=== PATIENT | male | born 1960 | race Caucasian/White ===

== ENCOUNTER 2016-12-19 10:25 | Outpatient (CLI) | payer OTHER ==
[2016-12-19 15:53] VITALS: BP 98/80
--- NOTE | 2016-12-20 13:08 | XRAY Report ---
There was no imaging performed for this exam. Procedure notes and results available in the EMR. RAISA
--- NOTE | 2016-12-22 04:23 | CARDIAC PROCEDURE NOTE ---
DATE OF SERVICE: 12/19/2016 00:00:00 PRIMARY CARE PROVIDER: FRANSISCO Oneal. PROCEDURE: Treadmill exercise test. PROCEDURE SYMPTOMS: Dyspnea on exertion; atypical chest pain. CARDIAC RISK FACTORS INCLUDE: Family history; former smoker. PREVIOUS CARDIAC PROCEDURES: None. CLINICAL HISTORY: A 56-year-old male without known coronary artery disease. INITIAL RESTING VITAL SIGNS: Blood pressure 98/80, heart rate 69, height 69 inches, weight 184 pound s, BMI 27.2. PROCEDURE AND FINDINGS: Patient identity and date verified, consent signed. The patient perfo rmed treadmill exercise using a Evan protocol, completing 12 minutes 21 seconds, and completing an e stimated workload of 12.9 metabolic equivalents. Maximal blood pressure was 145/90 with a heart rate of 155 beats per minute or 94% of maximum predicted heart rate for age. The blood pressure response to exercise was within normal limits. The patient stopped because he was getting short of air. At peak exercise, the patient rated the max imal Max scale for rating perceived exertion as 18/20. The resting ECG demonstrated normal sinus rh ythm with no abnormalities. Maximum ST segment depression with stress was less than 0.5 mm and upslo ping. There was no ectopy. FINAL IMPRESSIONS 1. Negative stress electrocardiogram for ischemia by electrocardiographic criteria. 2. Negative stress test clinically for angina. 3. No ectopy. 4. [employer] functional class 1. JOB #: [id number] EXT JOB #:[id number]
== END 2016-12-19 10:26 | disposition home or self-care (01) ==
LOC: DI 10:25
PROVIDERS: ATTEND Family Medicine
DX: R07.89 Other chest pain (principal); R06.00 Dyspnea, unspecified
CPT/HCPCS: 93017

== ENCOUNTER 2018-02-12 10:48 | Outpatient (CLI) | payer OTHER ==
[2018-02-12] MEDS ORDERED: IOPAMIDOL-300 100 ML VIAL ONE (10:57)
--- NOTE | 2018-02-12 11:59 | CT Report ---
Reason: SEVERAL CYST IN RIGHT INNER EAR CANAL Procedure Date: 02/12/2018 Accession Number: [id number] / [id number] Procedure: CT - Head W/ CPT Code: FULL RESULT: EXAM: CT HEAD EXAM DATE: 02/12/2018 11:14 AM. CLINICAL HISTORY: SEVERAL CYST IN RIGHT INNER EAR CANAL. COMPARISON: None. TECHNIQUE: Multiaxial CT images were obtained from the foramen magnum to the vertex. Reformats: Coronal. IV contrast: 80 cc Isovue-300. In accordance with CT protocol optimization, one or more of the following dose reduction techniques were utilized for this exam: automated exposure control, adjustment of mA and/or KV based on patient size, or use of iterative reconstructive technique. FINDINGS: Parenchyma: No intraparenchymal hemorrhage, although evaluation for hemorrhage is suboptimal in the presence of intravenous contrast. No evidence of mass, midline shift, or CT findings of infarction. Robles-white differentiation is distinct. Right posterior fossa calcification is noted. No abnormal enhancement is seen. Extraaxial Spaces: Normal for age. No subdural or epidural collections identified. Ventricles: Normal in size and position. Sinuses and Orbits: Imaged paranasal sinuses, orbits, and mastoids show no significant abnormality. There is a small nonenhancing soft tissue focus about the right middle ear, of uncertain significance. Bones: No evidence of fracture or calvarial defect. No discrete outer maladies are seen about the inner auditory canals, although the exam is not optimized for their evaluation. IMPRESSION: Small nonenhancing soft tissue focus about the right middle ear is nonspecific. RADIA
[2018-02-12] MEDS ORDERED: IOPAMIDOL-300 100 ML VIAL IVP ONE (12:58)
== END 2018-02-12 10:49 | disposition home or self-care (01) ==
LOC: DI 10:48
PROVIDERS: ATTEND Nurse Practitioner Acute Care
DX: H83.8X1 Other specified diseases of right inner ear (principal)
CPT/HCPCS: 70460; Q9967

== ENCOUNTER 2020-05-13 13:33 | Outpatient (CLI) | payer OTHER ==
[2020-05-13] MEDS ORDERED: GADOBUTROL 10 MMOL/10 ML VIAL ONE (14:34)
[2020-05-13] MEDS ORDERED: GADOBUTROL 10 MMOL/10 ML VIAL IVP ONE (15:15)
--- NOTE | 2020-05-15 08:48 | MRI Report ---
PROCEDURE: Knee LT W/WO INDICATIONS: PAIN AND LUMP, LT KNEE CONTRAST: IV CONTRAST: Gadavist ml: 8 TECHNIQUE: Noncontrast sagittal PD fast spin echo and T2 fast spin echo with fat saturation, sagittal 3-D spoile d GE with fat saturation; coronal T1 spin echo and PD fast spin echo with fat saturation, and axial T 1 spin echo and PD fast spin echo with fat saturation through the knee. Post-contrast axial, coronal , and sagittal T1 spin echo with fat saturation through the knee. COMPARISON: None. FINDINGS: Image quality: Excellent. Menisci: Truncation of the free edge of the posterior horn medial meniscus is present, indicating rad ial tearing. There is linear oblique high signal intensity traversing the posterior horn medial menis cus, demonstrating inferior articular surface extension, indicating superimposed oblique tearing. The re is partial detachment of the posterior horn lateral meniscus which appears intact. Cruciate ligaments: The anterior and posterior cruciate ligaments appear intact. Medial structures: The medial collateral ligament appears intact but demonstrates mild surrounding T 2 signal elevation.. Visualized portions of the pes anserinus tendons appear normal. No abnormal bur tiffani fluid. Lateral structures: The lateral collateral ligament, long and short heads of the biceps femoris tend on appear intact. The popliteus tendon appears normal. Iliotibial band appears normal. Anterior structures: The quadriceps and patellar tendons appear intact. There is mild T2 signal elev ation within the patellar tendon at the patellar insertion site. Patellar alignment is normal. No fe moral trochlear dysplasia or ventral trochlear prominence. Moderate edema in the infrapatellar fat pa d. Bones and cartilage: No suspicious osseous enhancement. No bone marrow contusions or fractures. Mil d tricompartmental periarticular osteophyte formation is present. There is moderate to severe diffuse articular cartilage loss overlying the weightbearing aspects of the medial femoral condyle and media l tibial plateau. Mild articular cartilage loss overlies the weightbearing aspects of the lateral fem oral condyle and lateral tibial plateau. Articular cartilage fibrillation overlies the medial and lat eral patellar facets. Joint space: There is a moderate knee joint effusion and a moderate De La Vega?s cyst. There is diffuse synovial enhancement following contrast administration. Normal appearing synovial plicae are incident ally noted. No suspicious soft tissue enhancement. At the posterior/medial aspect of the distal femur, there is a well-circumscribed bilobed nonenhancin g high T1/T2 signal intensity focus with multiple internal septations, measuring roughly 80 mm cranio caudal by 25 mm transverse by 30 mm anteroposterior, at the posterolateral aspect of the De La Vega's cyst , and superficial to the medial head of the gastrocnemius.. IMPRESSION: 1. The superficial soft tissue focus described above at the posteromedial aspect of the distal femur most likely represents a proteinaceous fluid containing cyst (possibly a loculated ganglion cyst digna ing from the De La Vega's cyst) versus a spontaneous hematoma. Continued clinical follow-up is recommended , with repeat pre and postcontrast MRI imaging in 3 months to ensure resolution, and to exclude under lying neoplasm. 2. 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 3. MCL strain. 4. Medial meniscal tearing. Lateral meniscal detachment. 5. Synovitis. 6. Patellar tendinitis. 7. Knee joint effusion and De La Vega's cyst. Reviewed by: Yara Belcher MD on 05/15/2020 8:47 AM PST Approved by: Yara Belcher MD on 05/15/2020 8:47 AM PST Station ID: [id number]
== END 2020-05-13 13:34 | disposition home or self-care (01) ==
LOC: DI 13:33
PROVIDERS: ATTEND Internal Medicine
DX: M17.12 Unilateral primary osteoarthritis, left knee (principal); S83.412A Sprain of medial collateral ligament of left knee, initial encounter; S83.242A Other tear of medial meniscus, current injury, left knee, initial encounter; M71.22 Synovial cyst of popliteal space [Baker], left knee; M76.52 Patellar tendinitis, left knee
CPT/HCPCS: 73723; A9585

== ENCOUNTER 2020-08-11 10:32 | Outpatient (CLI) | payer OTHER ==
[2020-08-11] MEDS ORDERED: GADOBUTROL 10 MMOL/10 ML VIAL ONE (10:54)
[2020-08-11] MEDS ORDERED: GADOBUTROL 10 MMOL/10 ML VIAL IVP ONE (11:10)
--- NOTE | 2020-08-11 12:59 | MRI Report ---
PROCEDURE: Knee LT W/WO INDICATIONS: EFFUSION LEFT KNEE CONTRAST: IV CONTRAST: Gadavist ml: 8.5 TECHNIQUE: Noncontrast sagittal PD fast spin echo and T2 fast spin echo with fat saturation, sagittal 3-D spoile d GE with fat saturation; coronal T1 spin echo and PD fast spin echo with fat saturation, and axial T 1 spin echo and PD fast spin echo with fat saturation through the knee. Post-contrast axial, coronal , and sagittal T1 spin echo with fat saturation through the knee. COMPARISON: Left knee MRI 05/13/2020 FINDINGS: Image quality: Excellent. Menisci: There is complex tearing of the medial meniscus with a horizontal oblique component extendin g to the inner third of the tibial articular surface and a superimposed shallow radial component. The lateral meniscus is intact. Cruciate ligaments: The anterior and posterior cruciate ligaments appear intact. Medial structures: The medial collateral ligament appears intact. The semimembranosus tendon insert ions appear intact. Visualized portions of the pes anserinus tendons appear normal. Lateral structures: The lateral collateral ligament, long and short heads of the biceps femoris tend on appear intact. The popliteus tendon appears intact. Iliotibial band appears normal. Anterior structures: The quadriceps and patellar tendons appear intact. Patellar alignment is ester l. There is a congenitally shallow trochlear groove with a prominent lateral patellar facet without p atellar subluxation. The tibial tubercle trochlear groove distance is within normal limits. No signif icant edema is seen in Hoffa's fat pad. Bones and cartilage: No bone marrow contusion or acute fracture. Full-thickness cartilage loss is s een in the weightbearing portion of the medial femorotibial compartment. High-grade and likely full-t hickness cartilage loss is seen in the posterior weightbearing portion of the lateral femorotibial co mpartment. In the anterior compartment, there is mild partial thickness cartilage irregularity in the lateral patellar facet. Joint space and soft tissues: There is a small joint effusion that has decreased in size when compar ed to the prior MRI. A small medial popliteal cyst is present. The previously seen T1 hyperintense co llection posterior to the knee has resolved. No suspicious soft tissue mass is identified. IMPRESSION: 1. The previously seen T1-hyperintense collection along the superficial margin of the medial head of gastrocnemius muscle has resolved, likely representing a benign hematoma on the prior study. No susp icious enhancing soft tissue mass. 2. Unchanged complex tearing of the medial meniscus with horizontal oblique and shallow radial compo nents. 3. 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 Grad e III to IV chondromalacia in the lateral compartment and grade II chondromalacia in the anterior com partment. 4. 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 The tibial tubercle-trochlear groove distance is within normal limits. 5. Small joint effusion. Small medial popliteal cyst, which has mildly decreased in size when compar ed to the prior exam. Reviewed by: Abrahan Boogie MD on 08/11/2020 12:58 PM PST Approved by: Abrahan Boogie MD on 08/11/2020 12:58 PM PST Station ID: [id number]
== END 2020-08-11 10:33 | disposition home or self-care (01) ==
LOC: DI 10:32
PROVIDERS: ATTEND Orthopaedic Surgery
DX: M25.462 Effusion, left knee (principal); S83.242A Other tear of medial meniscus, current injury, left knee, initial encounter; M94.262 Chondromalacia, left knee; M71.22 Synovial cyst of popliteal space [Baker], left knee
CPT/HCPCS: 73723; A9585

== ENCOUNTER 2021-01-06 15:49 | Emergency (ER) | payer OTHER ==
[2021-01-06] MEDS ORDERED: BUFFERED LIDOCAINE 10 ML SYRINGE SUBQ STA (16:18)
[2021-01-06] MEDS ORDERED: TETANUS/DIPHTHERIA/PERTUSSIS 0.5 ML SYRINGE IM ONE (16:18)
[2021-01-06] MEDS ORDERED: BACITRACIN ZINC OINT 1 PACKET TOP STA (16:19)
--- NOTE | 2021-01-06 16:21 | ED Physician Documentation ---
History of Present Illness - Stated complaint Stated Complaint: LT KNEE INJURY - Chief complaint Chief Complaint: Laceration - Additonal information Additional information: 60-year-old male presents emergency department for an evaluation of a laceration just above his left patella sustained when using a chain saw at home today his knee was flexed when the injury occurred. Uncertain of last tetanus. Patient is ambulatory. Denies any other injuries. Review of Systems Constitutional: reports: Reviewed and negative Nose: reports: Reviewed and negative Throat: reports: Reviewed and negative Cardiac: reports: Reviewed and negative Skin: reports: Laceration (s) PD PAST MEDICAL HISTORY - Past Medical History : Benign prostate hypertrophy - Past Surgical History Ortho: Carpal Tunnel surgery HEENT: Other - Allergies Allergies/Adverse Reactions: Allergies Allergy/AdvReac Type Severity Reaction Status Date / Time No Known Drug Allergies Allergy Verified 01/06/21 16:03 PD ED PE EXPANDED - Extremities Extremities: Left knee (5 cm laceration approximately 4 cm Above the left patella. Patient has full flexion extension of the knee against resistance and a normal gait. Visual exam does not reveal any obvious tendon or muscle injury though the laceration does extend to just below the subcutaneous tissue.), Cold foot Results - Vitals Vitals: Vital Signs - 24 hr 01/06/21 16:01 Temperature 369.9 C H Heart Rate 97 Respiratory 20 Rate Blood Pressure 155/111 H O2 Saturation 97 Oxygen O2 Source Room air - Rads (name of study) left knee Radiology: EMP read indepedently (No fracture) Procedures - Laceration (location) left knee Length in cm: 5 Wound type: Irregular, Flap, Into subcut fat, Contaminated Neurovascular status: Sensory intact, Motor intact Tendon involvement: Tendon intact Anesthesia: LET Wound preparation: Chlorhexadine, Irrigated copiously NS, Debrided moderately, Wound explored, To the base, debridement of wound edges (traumatic laceration/avulsion), Limited undermining Skin layer closure: Val (6) Other: Patient tolerated well, No complications, Tetanus booster given PD MEDICAL DECISION MAKING - ED course Complexity details: reviewed results, d/w family ED course: 60-year-old male presents emergency department for evaluation of a laceration just above his left knee sustained when using a chainsaw. With thorough evaluation there does not appear to be any tendon injury. His gait is normal and unassisted. No evidence of bony involvement on x-ray. Tetanus was updated today. Wound was thoroughly irrigated. Wound did require moderate debridement to approximate the skin edges. 6 val placed. Emergent return precautions discussed. Departure - Departure Disposition: 01 Home, Self Care Clinical Impression: Laceration of left knee Qualifiers: Encounter type: initial encounter Qualified Code(s): S81.012A - Laceration without foreign body, left knee, initial encounter Condition: Stable Record reviewed to determine appropriate education?: Yes Instructions: ED Laceration All Comments: Your val should be removed in 7 to 10 days. In 24 hours you may remove the dressing wash gently with warm soap and water, apply any antibiotic ointment and a simple bandage. Your tetanus is up-to-date. Please attempt to keep your wound clean and dry. Do not submerge it in dirty dishwater or bath water. Reduce flexion extension of the knee to allow the wound to heal more quickly. Return to the emergency department if you have any concerns of infection such as redness, fevers milky drainage increased pain.
--- NOTE | 2021-01-06 17:05 | XRAY Report ---
PROCEDURE: Knee 2 View LT INDICATIONS: cut with chainsaw TECHNIQUE: 2 views of the left knee(s) were acquired. COMPARISON: Correlation is made with prior knee MRI examinations, 08/11/2020, 05/13/2020 FINDINGS: Bones: No fractures or dislocations. No suspicious bony lesions. There is moderate medial femorotibial joint space narrowing, with associated degenerative change with subchondral sclerosis and osteophyte formation. Soft tissues: Soft tissue injury is seen involving the distal thigh. No radiopaque foreign bodies ar e seen. Atherosclerotic calcification is seen. IMPRESSION: Soft tissue injury seen involving the distal thigh, without an underlying valentín bony abn ormality seen. Reviewed by: Dov Willett MD on 01/06/2021 4:04 PM [facility]RA Approved by: Dov Willett MD on 01/06/2021 4:04 PM LIBRA Station ID: [id number]
[2021-01-06 17:12] VITALS: BP 135/97
== END 2021-01-06 17:12 | disposition home or self-care (01) ==
LOC: ED 15:49
DX: S81.012A Laceration without foreign body, left knee, initial encounter (principal); W29.3XXA Contact with powered garden and outdoor hand tools and machinery, initial encounter; Y93.89 Activity, other specified; Y92.009 Unspecified place in unspecified non-institutional (private) residence as the place of occurrence of the external cause; Z23 Encounter for immunization
CPT/HCPCS: 12002; 73560; 90471; 90715; 99281; 99283; A9270

== ENCOUNTER 2021-09-15 15:39 | Emergency (ER) | payer OTHER ==
[2021-09-15 15:44] VITALS: BP 144/87
--- NOTE | 2021-09-15 15:52 | ED Physician Documentation ---
PD HPI UPPER EXT INJURY - Stated complaint Stated Complaint: R RING FINGER INJ - Chief complaint Chief Complaint: Laceration - History obtained from History obtained from: Patient - History of Present Illness Location: Right (61-year-old gentleman who is right-handed and up-to-date on tetanus cut his right fourth finger with pruning christopher at home just prior to arrival.) Review of Systems Constitutional: reports: Reviewed and negative Eyes: reports: Reviewed and negative Cardiac: reports: Reviewed and negative Respiratory: reports: Reviewed and negative PD PAST MEDICAL HISTORY - Past Medical History : Benign prostate hypertrophy - Past Surgical History Ortho: Carpal Tunnel surgery HEENT: Other - Allergies Allergies/Adverse Reactions: Allergies Allergy/AdvReac Type Severity Reaction Status Date / Time No Known Drug Allergies Allergy Verified 09/15/21 15:41 PD ED PE NORMAL - Vitals Vital signs reviewed: Yes - General General: Alert and oriented X 3, No acute distress - Extremities Extremities: Other (There is a laceration at the tip of the left fourth finger going from the pad curvilinear around to the dorsal surface with a vonnie in the nail as well. It is a pretty clean cut. No distal neurovascular compromise.) - Neuro Neuro: Alert and oriented X 3, Normal speech Results - Vitals Vitals: Vital Signs - 24 hr 09/15/21 15:42 Temperature 36.5 C Heart Rate 67 Respiratory 16 Rate Blood Pressure 144/87 H O2 Saturation 99 Oxygen O2 Source Room air Procedures - Laceration (location) R 4th finger Length in cm: 2 Wound type: Linear Neurovascular status: Sensory intact, Motor intact, Vascular intact Anesthesia: Lidocaine 1%, With bicarb Wound preparation: Irrigated copiously NS Skin layer closure: Nylon, Interrupted, Size #-0 - enter number (4-0), Sutures - enter # (5), Other (The involvement of the nail was fairly small so some Dermabond was placed on the nail and then the pad was sutured) Other: Patient tolerated well, No complications, Neurovascular intact, Tetanus UTD Departure - Departure Disposition: 01 Home, Self Care Clinical Impression: Finger laceration Qualifiers: Encounter type: initial encounter Finger: ring finger Damage to nail status: with damage Foreign body presence: without foreign body Laterality: right Qualified Code(s): S61.314A - Laceration without foreign body of right ring finger with damage to nail, initial encounter Condition: Good Record reviewed to determine appropriate education?: Yes Instructions: ED Laceration Hand Comments: Come back for any signs of infection which would include: Redness, swelling, drainage, increased pain, or fevers. You can wash it soap and water. Keep it covered and moist with bacitracin ointment which is available over the counter; avoid neosporin. Follow-up with your physician in About 14 days for suture removal.
== END 2021-09-15 16:10 | disposition home or self-care (01) ==
LOC: ED 15:39
DX: S61.315A Laceration without foreign body of left ring finger with damage to nail, initial encounter (principal); W27.8XXA Contact with other nonpowered hand tool, initial encounter
CPT/HCPCS: 12001; 99281

== ENCOUNTER 2023-10-08 13:42 | Outpatient (CLI) | payer OTHER ==
--- NOTE | 2023-10-08 16:35 | MRI Report ---
Ankle RT WO CLINICAL HISTORY: 63 years of age, Male, STRAIN OF R ACHILLES. COMPARISON: None Technique: Multisequence, multiplanar MRI of the right ankle was performed without contrast. IV CONTRAST: Not given FINDINGS: Tendons: Mild tenosynovitis of the posterior tibialis. The flexor digitorum longus and the flexor stacy lux longus are unremarkable. The peroneal tendons, extensor tendons,, are unremarkable. Severe tendin osis of the Achilles tendon with low-grade interstitial tear at the mid fiber, approximately 4.8 cm f rom the calcaneal insertion. Ligaments: Thickening of the anterior tibiofibular ligament, representing prior sprain. The posterior tibiofibular ligament is intact.The anterior and posterior talofibular ligaments are intact. The sil caneofibular ligament is unremarkable. The superficial and deep components of the deltoid ligament ar e intact. Sinus Tarsi: Normal signal without evidence of inflammatory change or fibrosis. Plantar fascia: Mild thickening of the central cord, which can be seen in the setting of plantar fas ciitis. Muscles: Visualized intrinsic foot musculature demonstrates normal signal and bulk. Bones and cartilage: Subchondral marrow edema in the lateral talus dome, measuring 7 mm, concerning f or osteochondral lesion, stage I. There is adjacent mild marrow edema of the lateral malleolus, favor ing reactive. There is marked marrow edema of the third metatarsal base, nonspecific in the be degene rative. Additional mild subchondral marrow edema at the second tarsometatarsal joint, favoring degene rative as well. Miscellaneous: Tarsal tunnel appears normal. No significant effusion. No ganglion cyst. IMPRESSION: 1.Severe tendinosis of the Achilles tendon with low-grade distal tear of the mid fiber. 2.Findings concerning for plantar fasciitis. 3.7 mm stage I osteochondral lesion in the lateral talus dome. Adjacent marrow edema of the lateral m alleolus, favoring reactive versus degenerative. 4.Mild degenerative changes in the midfoot with associated marrow edema. Reviewed by: Janina Moore MD on 10/08/2023 4:33 PM PDT Approved by: Janina Moore MD on 10/08/2023 4:33 PM PDT Station ID: [id number]
== END 2023-10-08 13:43 | disposition home or self-care (01) ==
LOC: DI 13:42
PROVIDERS: ATTEND Nurse Practitioner Family
DX: S86.021A Laceration of right Achilles tendon, initial encounter (principal); R93.6 Abnormal findings on diagnostic imaging of limbs; M19.071 Primary osteoarthritis, right ankle and foot

== ENCOUNTER 2023-10-24 16:15 | Outpatient (CLI) | payer OTHER ==
--- NOTE | 2023-10-27 09:16 | XRAY Report ---
PROCEDURE: Foot 3+V RT (Weight Bearing) INDICATIONS: RIGHT ANKLE PAIN TECHNIQUE: 3 views of the foot were acquired. COMPARISON: X-ray ankle 08/24/2023, MRI ankle 10/08/2023 FINDINGS: Bones: No fractures or dislocations. No suspicious bony lesions. Mild midfoot degenerative change. Osteochondral defect is identified on prior MR ankle, not as well seen on current x-ray. Soft tissues: No tibiotalar joint effusion. Achilles tendon appears normal. IMPRESSION: Mild midfoot degenerative change. Reviewed by: Lesley Hilliard MD on 10/27/2023 9:15 AM PDT Approved by: Lesley Hilliard MD on 10/27/2023 9:15 AM PDT Station ID: [id number]
--- NOTE | 2023-10-27 09:18 | XRAY Report ---
PROCEDURE: Ankle 3+V RT INDICATIONS: RIGHT ANKLE PAIN TECHNIQUE: 3 views of the ankle were acquired. COMPARISON: X-ray foot 10/24/2023, MRI ankle 10/08/2023 FINDINGS: Bones: No fractures or dislocations. Ankle mortise is normally aligned. No suspicious bony lesions . Osteochondral defect at the talus previous identified on MR ankle is not as well seen on current exam. Midfoot degenerative changes are present. Soft tissues: No tibiotalar joint effusion. Achilles tendon appears normal. IMPRESSION: Midfoot degenerative change. Reviewed by: Lesley Hilliard MD on 10/27/2023 9:16 AM PDT Approved by: Lesley Hilliard MD on 10/27/2023 9:16 AM PDT Station ID: [id number]
== END 2023-10-24 16:16 | disposition home or self-care (01) ==
LOC: DI 16:15
PROVIDERS: ATTEND Orthopaedic Surgery
DX: M19.071 Primary osteoarthritis, right ankle and foot (principal)